=== PATIENT | female | born 1995 | race Caucasian/White ===

== ENCOUNTER 2018-09-18 16:04 | Emergency (ER) | payer BC ==
[2018-09-18] MEDS ORDERED: ONDANSETRON 4 MG/2 ML VIAL ONE (17:08)
[2018-09-18] MEDS ORDERED: NA CHLORIDE 0.9% 1,000 ML ONE (17:09)
[2018-09-18 17:17] LABS: Basophils % 0.1 % (0-1.3); Hematocrit 40.8 % (36.0-45.0); Lymphocytes % 9.8 % (15.3-44.8); MPV 9.8 fL (7.6-11.3); RBC Red Blood Cell Count 4.58 M/uL (3.86-4.86)
[2018-09-18 17:37] LABS: ALT/SGPT 17 U/L (12-78); AST/SGOT 20 U/L (15-37); Albumin 4.5 g/dL (3.4-5.0); Alkaline Phosphatase 65 U/L (45-117); BUN Blood Urea Nitrogen 11 mg/dL (7-18); Bicarbonate 23 mmol/L (21-32); Bilirubin Direct 0.2 mg/dL (0-0.2); Bilirubin Total 0.7 mg/dL (0.2-1.0); Glucose Level 86 mg/dL (74-106); Lipase 96 U/L (73-393); Protein, Total 7.9 g/dL (6.4-8.2); Sodium Level 139 mmol/L (136-145)
[2018-09-18 18:07] LABS: Urine Blood 2+ (NEG); Urine Glucose NEGATIVE (NEG); Urine Protein 2+ (NEG); Urine Specific Gravity >1.030 (1.005-1.030)
[2018-09-18 18:15] LABS: Urine Amorphous Sediment TRACE /HPF (NONE SEEN); Urine Bacteria 20-50 /HPF (<20); Urine Mucus 1+ /HPF (NONE SEEN); Urine RBC <5 /HPF (NONE SEEN)
[2018-09-18 18:16] LABS: Urine Culture Reflex Order REFLEXED
[2018-09-18 18:20] LABS: Blood Morphology Comment NOTED (NOT SEEN); Platelet Estimate ADEQ; Urine White Blood Cell Casts OK
[2018-09-18 18:21] LABS: Poikilocytosis 1+
--- NOTE | 2018-09-18 18:25 | RAD REPORT ---
EXAM DESCRIPTION: CT - Abdomen Pelvis W Contrast - 09/18/2018 6:11 pm CLINICAL HISTORY: Abdominal pain COMPARISON: None. TECHNIQUE: Biphasic, helical CT imaging of the abdomen and pelvis was performed following 100 ml non -ionic IV contrast. Oral contrast was given. All CT scans are performed using dose optimization technique as appropriate and may include automated exposure control or mA/KV adjustment according to patient size. FINDINGS: No suspicious findings in the lung bases. The liver, spleen, and pancreas show no suspicious findings. Gallbladder and biliary tree are also wi thout suspicious finding. Symmetric renal function is seen with no hydronephrosis or suspicious renal mass. No pyelonephritis o r acute parenchymal process. No bladder abnormalities. No adrenal abnormalities. No gastric dilatation or wall thickening. No dilation of the large or small bowel. Fluid-filled dista l small bowel loops and fluid filled proximal colon could indicate nonspecific enteritis. No appendic itis findings. No free air, free fluid or inflammatory stranding. No hernia, mass or bulky lymphade nopathy. Uterus and ovaries show no suspicious findings. No acute bone finding. Prominent bulging disc at L4-5 noted. Disc bulge at L5-S1 is present with L5-S 1 disc space narrowing. IMPRESSION: Nonspecific gastroenteritis pattern. No obstruction, free air or surgically emergent fin ding. Prominent bulging disc material at L4-5. Central canal is borderline stenotic. This can be re-evaluat ed with outpatient MRI imaging if the patient has any back pain or lower extremity radicular symptoms .
--- NOTE | 2018-09-18 19:08 | EDPHYS ---
Physician Documentation [facility] Name: Gloria Mcallister Age: 22 yrs Sex: Female : 1995 Arrival Date: 09/18/2018 Time: 16:10 Bed 16 Private MD: ED Physician Aguilar Castillo HPI: 09/18 16:30 This 22 yrs old Female presents to ER via Ambulatory with complaints of pm1 Headache, Diarrhea, Nausea, Low back pain. 16:30 The patient presents with pain that is acute. The symptoms are located in the low back. pm1 Onset: The symptoms/episode began/occurred 1 week(s) ago. The pain does not radiate. Associated signs and symptoms: Pertinent positives: dysuria, headache, nausea, diarrhea, Pertinent negatives: chest pain, incontinence, numbness, tingling, vomiting. The problem was sustained from unknown cause. Modifying factors: The patient symptoms are alleviated by nothing, the patient symptoms are aggravated by nothing. Severity of symptoms: in the emergency department the symptoms are actually worse. The patient has not experienced similar symptoms in the past. The patient has not recently seen a physician. Patient presenting with low back pain with some episodes of foul odor urine and cloudiness. 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 Patient with headache onset yesterday that has improved. 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 - Social history:: Smoking status: Patient/guardian denies using tobacco. - Ebola Screening: : No symptoms or risks identified at this time. ROS: 16:30 Constitutional: Negative for fever, chills, and weight loss, Eyes: Negative for injury, pm1 pain, redness, and discharge, ENT: Negative for injury, pain, and discharge, Neck: Negative for injury, pain, and swelling, Cardiovascular: Negative for chest pain, palpitations, and edema, Respiratory: Negative for shortness of breath, cough, wheezing, and pleuritic chest pain. 16:30 MS/Extremity: Negative for injury and deformity, Skin: Negative for injury, rash, and discoloration, Neuro: Negative for headache, weakness, numbness, tingling, and seizure. 16:30 Abdomen/GI: Positive for nausea, diarrhea, Negative for abdominal pain, vomiting, constipation. 16:30 Back: Positive for of the low back area pain. 16:30 : Positive for urinary symptoms, foul smelling urine. Exam: 16:30 Constitutional: This is a well developed, well nourished patient who is awake, alert, pm1 and in no acute distress. Head/Face: Normocephalic, atraumatic. Eyes: Pupils equal round and reactive to light, extra-ocular motions intact. Lids and lashes normal. Conjunctiva and sclera are non-icteric and not injected. Cornea within normal limits. Periorbital areas with no swelling, redness, or edema. ENT: Nares patent. No nasal discharge, no septal abnormalities noted. Tympanic membranes are normal and external auditory canals are clear. Oropharynx with no redness, swelling, or masses, exudates, or evidence of obstruction, uvula midline. Mucous membranes moist. Neck: Trachea midline, no thyromegaly or masses palpated, and no cervical lymphadenopathy. Supple, full range of motion without nuchal rigidity, or vertebral point tenderness. No Meningismus. Chest/axilla: Normal chest wall appearance and motion. Nontender with no deformity. No lesions are appreciated. Cardiovascular: Regular rate and rhythm with a normal S1 and S2. No gallops, murmurs, or rubs. Normal PMI, no JVD. No pulse deficits. Respiratory: Lungs have equal breath sounds bilaterally, clear to auscultation and percussion. No rales, rhonchi or wheezes noted. No increased work of breathing, no retractions or nasal flaring. Abdomen/GI: Soft, non-tender, with normal bowel sounds. No distension or tympany. No guarding or rebound. No evidence of tenderness throughout. 16:30 Skin: Warm, dry with normal turgor. Normal color with no rashes, no lesions, and no evidence of cellulitis. MS/ Extremity: Pulses equal, no cyanosis. Neurovascular intact. Full, normal range of motion. 16:30 Back: pain, that is mild, of the right low back, normal spinal alignment noted, no vertebral tenderness. 16:30 Neuro: Orientation: is normal, Mentation: is normal, Cranial nerves: CN II- XII are normal as tested, Cerebellar function: normal finger to nose testing, heel to escobedo testing is normal, Motor: moves all fours, strength is normal, strength is 5/5 in all extremities, Sensation: is normal, no obvious gross deficits. Vital Signs: 16:10 BP 100 / 61; Pulse 69; Resp 18; Temp 97.4(TE); Pulse Ox 99% on R/A; Weight 58.97 kg; hj Height 5 ft. 5 in. (165.10 cm); Pain 3/10; 17:20 BP 98 / 71; Pulse 62; Resp 18; Pulse Ox 100% on R/A; ph 18:41 BP 108 / 80; Pulse 79; Resp 18; Pulse Ox 98% on R/A; ph 16:10 Body Mass Index 21.63 (58.97 kg, 165.10 cm) hj MDM: 16:21 Patient medically screened. pm1 19:04 Data reviewed: vital signs. Data interpreted: Pulse oximetry: on room air is 98 %. pm1 Interpretation: normal. Counseling: I had a detailed discussion with the patient and/or guardian regarding: the historical points, exam findings, and any diagnostic results supporting the discharge/admit diagnosis, lab results, radiology results, the need for outpatient follow up, a family practitioner, a neurosurgeon, to return to the emergency department if symptoms worsen or persist or if there are any questions or concerns that arise at home. 08 16:38 Order name: Flu pm1 09/18 16:38 Order name: [place] Screen Profile pm1 09/18 16:38 Order name: Basic Metabolic Panel pm1 09/18 16:38 Order name: CBC with Diff pm1 09/18 16:38 Order name: Creatinine for Radiology pm1 09/18 16:38 Order name: Hepatic Function; Complete Time: 18:32 pm1 09/18 16:38 Order name: Lipase; Complete Time: 18:32 pm1 09/18 16:38 Order name: Urine Microscopic Only; Complete Time: 18:32 pm1 08 16:42 Order name: Influenza Screen (A ; Complete Time: 18:32 EDMS 09/18 16:42 Order name: [place] Screen; Complete Time: 17:37 EDMS 09/18 16:42 Order name: Basic Metabolic Panel; Complete Time: 18:32 EDMS 08 16:42 Order name: CBC with Automated Diff; Complete Time: 18:32 EDMS 08 16:42 Order name: Creatinine (Radiology Only); Complete Time: 17:37 EDMS 09/18 17:27 Order name: CBC Smear Scan; Complete Time: 18:32 EDMS 09/18 16:38 Order name: IV Saline Lock; Complete Time: 17:04 pm1 09/18 16:38 Order name: Labs collected and sent; Complete Time: 17:04 pm1 09/18 16:38 Order name: Urine Dipstick-Ancillary (obtain specimen); Complete Time: 18:26 pm1 09/18 16:38 Order name: CT Abd/Pelvis - IV Contrast Only; Complete Time: 18:32 pm1 09/18 17:58 Order name: Urine Dipstick--Ancillary (enter results); Complete Time: 18:32 bd 09/18 17:58 Order name: Urine --Ancillary (enter results); Complete Time: 18:32 bd 09/18 18:20 Order name: Urine Culture EDMS Administered Medications: 17:13 Drug: NS 0.9% 1000 ml Route: IV; Rate: 1000 ml; Site: left antecubital; ph 18:14 Follow up: Response: No adverse reaction; IV Status: Completed infusion; IV Intake: ph 1000ml 17:14 Drug: Zofran 4 mg Route: IVP; Site: right antecubital; ph 18:13 Follow up: Response: No adverse reaction; Nausea is decreased ph 19:05 Not Given (Duplicate Order): Rocephin 1 grams IV at calculated rate once; Given slow IV ph push per pharmacy instructions 19:38 Drug: Rocephin 1 grams Route: IV; Rate: calculated rate; Site: left wrist; tr5 19:38 Follow up: Response: Medication administered at discharge.; IV Status: Completed tr5 infusion Disposition: 09/19 07:24 Co-signature as Attending Physician, Aguilar Castillo MD. rn Disposition: 09/18/18 19:06 Discharged to Home. Impression: Urinary tract infection, site not specified, Diarrhea, unspecified, Low back pain - Lumbar disc herniation L4-L5. - Condition is Stable. - Discharge Instructions: Back Pain, Adult, Diarrhea, Adult, Urinary Tract Infection, Adult, Viral Gastroenteritis, Adult. - Prescriptions for Tylenol- Codeine #3 300-30 mg Oral Tablet - take 2 tablets by ORAL route every 6 hours As needed; 12 tablet. Zofran 4 mg Oral Tablet - take 1 tablet by ORAL route every 12 hours As needed; 20 tablet. Macrobid 100 mg Oral Capsule - take 1 capsule by ORAL route every 12 hours for 10 days; 20 capsule. - Medication Reconciliation Form, Thank You Letter, Antibiotic Education, Prescription Opioid Use form. - Follow up: Emergency Department; When: As needed; Reason: Worsening of condition. Follow up: Private Physician; When: 2 - 3 days; Reason: Recheck today's complaints, Continuance of care, Re-evaluation by your physician. - Problem is new. - Symptoms have improved. Signatures: Dispatcher [employer] EDMS Aguilar Castillo MD MD rn Hall, Patricia RN RN Vinny Crum RN RN Eladio Collado, JULIET SOFTWARE DEVELOPER CONSULTANT pm1 Og Andersen RN RN tr5 Corrections: (The following items were deleted from the chart) 09/18 19:43 19:06 09/18/2018 19:06 Discharged to Home. Impression: Urinary tract infection, site tr5 not specified; Diarrhea, unspecified; Low back pain - Lumbar disc herniation L4-L5. Condition is Stable. Forms are Medication Reconciliation Form, Thank You Letter, Antibiotic Education, Prescription Opioid Use. Follow up: Emergency Department; When: As needed; Reason: Worsening of condition. Follow up: Private Physician; When: 2 - 3 days; Reason: Recheck today's complaints, Continuance of care, Re-evaluation by your physician. Problem is new. Symptoms have improved. pm1 09/19 01:40 09/18 16:30 This 22 yrs old Female presents to ER via Ambulatory with pm1 complaints of Headache, Diarrhea, Nausea. pm1
--- NOTE | 2018-09-18 19:08 | ER ---
Nurse's Notes [facility] Name: Gloria Mcallister Age: 22 yrs Sex: Female : 1995 Arrival Date: 09/18/2018 Time: 16:10 Bed 16 Private MD: Diagnosis: Urinary tract infection, site not specified;Diarrhea, unspecified;Low back pain-Lumbar disc herniation L4-L5 Presentation: 09/18 16:08 Presenting complaint: Patient states: my headache started last Tuesday, reports hj nausea; reports on and off back pain; denies burning urination; reports feeling warm;. Transition of care: patient was not received from another setting of care. Onset of symptoms was September 18, 2018. Risk Assessment: Do you want to hurt yourself or someone else? Patient reports no desire to harm self or others. Initial Sepsis Screen: Does the patient meet any 2 criteria? No. Patient's initial sepsis screen is negative. Does the patient have a suspected source of infection? No. Patient's initial sepsis screen is negative. Care prior to arrival: None. 16:08 Method Of Arrival: Ambulatory 16:08 Acuity: BATOOL 3 hj Triage Assessment: 19:07 Headache History: The patient has had previous headaches and this one is similar to ph previous episodes. 19:39 General: Appears in no apparent distress. Pain: Also complains of. tr5 19:40 General: Appears in no apparent distress. Pain: Pain began. Pain: Denies pain. tr5 Complains of pain in abdomen Pain currently is 0 out of 10 on a pain scale. 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 - Social history:: Smoking status: Patient/guardian denies using tobacco. - Ebola Screening: : No symptoms or risks identified at this time. Screenin:17 Abuse screen: Denies threats or abuse. Denies injuries from another. Nutritional ph screening: No deficits noted. Tuberculosis screening: No symptoms or risk factors identified. Fall Risk None identified. Assessment: 17:18 General: Appears in no apparent distress. comfortable, ill, slender, Behavior is calm, ph cooperative, appropriate for age, Reports feeling ill for > 3 days, Denies fever, chills. Pain: Complains of pain in head, upper abdomen and low back. Neuro: Level of Consciousness is awake, alert, obeys commands, Oriented to person, place, time, situation. Cardiovascular: Capillary refill < 3 seconds in bilateral fingers Patient's skin is warm and dry. Respiratory: Airway is patent Respiratory effort is even, unlabored, Respiratory pattern is regular, symmetrical, Denies cough, shortness of breath. GI: Abdomen is flat, non-distended, Bowel sounds present X 4 quads. Reports upper abdominal pain, diarrhea, nausea, vomiting. : Reports pain in lower back Denies burning with urination, urgency. Derm: Skin is intact, Skin is pink, warm \T\ dry. Musculoskeletal: Circulation, motion, and sensation intact. Range of motion: intact in all extremities. 18:41 Reassessment: Patient appears in no apparent distress at this time. Patient and/or ph family updated on plan of care and expected duration. Pain level reassessed. Patient is alert, oriented x 3, equal unlabored respirations, skin warm/dry/pink. Vital Signs: 16:10 BP 100 / 61; Pulse 69; Resp 18; Temp 97.4(TE); Pulse Ox 99% on R/A; Weight 58.97 kg; hj Height 5 ft. 5 in. (165.10 cm); Pain 3/10; 17:20 BP 98 / 71; Pulse 62; Resp 18; Pulse Ox 100% on R/A; ph 18:41 BP 108 / 80; Pulse 79; Resp 18; Pulse Ox 98% on R/A; ph 16:10 Body Mass Index 21.63 (58.97 kg, 165.10 cm) ED Course: 16:10 Patient arrived in ED. rg4 16:10 Triage completed. hj 16:10 Arm band placed on left wrist. hj 16:20 Eladio Pascal NP is PHCP. pm1 16:20 Aguilar Castillo MD is Attending Physician. pm1 16:20 Divine Albert RN is Primary Nurse. ph 16:51 Radiology exam delayed due to lab results not completed at this time. (BUN/Creatinine) vm2 test not completed at this time. 17:00 Patient has correct armband on for positive identification. Bed in low position. Call ph light in reach. Side rails up X 1. Door closed. Noise minimized. Warm blanket given. 17:18 Inserted saline lock: 22 gauge in left antecubital area, using aseptic technique. Blood ph collected. 17:21 Radiology exam delayed due to lab results not completed at this time. (BUN/Creatinine) nj test not completed at this time. IV insertion attempt and/or patient not having appropriate IV at this time. 17:50 Radiology exam delayed due to test not completed at this time. nj 18:15 CT Abd/Pelvis - IV Contrast Only In Process Unspecified. EDMS 19:06 No provider procedures requiring assistance completed. ph 19:43 IV discontinued. tr5 Administered Medications: 17:13 Drug: NS 0.9% 1000 ml Route: IV; Rate: 1000 ml; Site: left antecubital; ph 18:14 Follow up: Response: No adverse reaction; IV Status: Completed infusion; IV Intake: ph 1000ml 17:14 Drug: Zofran 4 mg Route: IVP; Site: right antecubital; ph 18:13 Follow up: Response: No adverse reaction; Nausea is decreased ph 19:05 Not Given (Duplicate Order): Rocephin 1 grams IV at calculated rate once; Given slow IV ph push per pharmacy instructions 19:38 Drug: Rocephin 1 grams Route: IV; Rate: calculated rate; Site: left wrist; tr5 19:38 Follow up: Response: Medication administered at discharge.; IV Status: Completed tr5 infusion Intake: 18:14 IV: 1000ml; Total: 1000ml. ph Outcome: 19:06 Discharge ordered by . pm1 19:40 Discharged to home ambulatory. tr5 19:40 Condition: stable 19:40 Discharge instructions given to patient, Instructed on discharge instructions, follow up and referral plans. medication usage, Demonstrated understanding of instructions, follow-up care, medications, Prescriptions given X 3. 19:43 Patient left the ED. tr5 Signatures: Dispatcher [employer] EDDivine Greco RN RN ph Joaquin, Henry, RN RN hj Marinas, Patrick, JULIET BUSINESS PARTNER pm1 Katerine Vega rgRomario Paz Victoria Og Stevens RN RN tr5 Corrections: (The following items were deleted from the chart) 16:12 16:10 Pulse 69bpm; Resp 18bpm; Pulse Ox 99% RA; Temp 97.4F Temporal; 58.97 kg; Height 5 hj ft. 5 in.; BMI: 21.6; Pain 3/10; hj
[2018-09-18] MEDS ORDERED: CEFTRIAXONE/SWI 1gm 1 GM/10 ML SYR ONE (19:29)
== END 2018-09-18 19:43 | disposition home or self-care (01) ==
LOC: ER 16:04
DX: N39.0 Urinary tract infection, site not specified (principal); M51.26 Other intervertebral disc displacement, lumbar region; R19.7 Diarrhea, unspecified
CPT/HCPCS: 87088; 85025; 87086; 80048; 36415; 86308; 81025; 80076; 83690; 87804 ×2; 74177; 99284; Q9967; J0696; J7030; J2405; 81003; 81015; 96361; 96374; 96375